=== PATIENT | female | born 1955 | race Caucasian/White ===

== ENCOUNTER → 2018-10-05 11:43 | Outpatient (CLI) | payer OTHER, MEDICAID, SELFPAY ==
--- NOTE | 2018-10-05 | DI.RAD.S_ITS ---
PROCEDURE: XR CERVICAL SPINE 2V OR 3V INDICATIONS: NECK PAIN TECHNIQUE: 3 view(s) of the cervical spine were acquired. COMPARISON: [facility], CR, XR C SPINE 2-3V, 07/27/2016, 4:07 PM. FINDINGS: Bones: Mild retrolisthesis of C5 on C6. No fractures or dislocations to the T1 level. The lateral masses of C1 appear intact on the odontoid view. There is severe degenerative disc disease at C5-C6 and C6-C7. Bilateral facet arthropathy, most pronounced at C3-C4 and C4-C5 on the left. There is moderate to severe atlantoaxial joint degeneration. No suspicious bony lesions. Soft tissues: No prevertebral soft tissue swelling. IMPRESSION: 1. Severe degenerative disc disease at C5-C6 and C6-C7. 2. Multilevel facet arthropathy in cervical spine, more pronounced on the left. 3. 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 Dictated by: Ehsan Armstrong M.D. on 10/05/2018 at 16:42 Approved by: Ehsan Armstrong M.D. on 10/05/2018 at 16:45
== END ==
PROVIDERS: PCP Family Medicine; Visit Provider Family Medicine
DX: M50.322 Other cervical disc degeneration at C5-C6 level (principal); M47.812 Spondylosis without myelopathy or radiculopathy, cervical region
CPT/HCPCS: 72040

== ENCOUNTER → 2018-11-06 09:44 | Outpatient (CLI) | payer OTHER, MEDICAID, SELFPAY ==
--- NOTE | 2018-11-06 09:51 | DI.CT.S_ITS ---
PROCEDURE: CT CERVICAL SPINE WO CON INDICATIONS: cervicalgia TECHNIQUE: Noncontrast 3 mm thick sections acquired from the skull base to the T4 level. Sagittal and coronal reformats were then constructed. For radiation dose reduction, the following was used: automated exposure control, adjustment of mA and/or kV according to patient size. COMPARISON: [facility], CR, XR CERVICAL SPINE 2V OR 3V, 10/05/2018, 11:56. FINDINGS: Image quality: Excellent. Bones: No fractures can be seen. No dislocations Visualized superior ribs are intact. Relatively prominent degenerative changes are seen. There is prominent focal facet hypertrophy seen on the right at the C1-C2 level, with associated prominent bony irregularity. Moderate facet hypertrophy can be seen elsewhere, which is more prominent on the left side than on the right. There is moderate to severe disc space narrowing at C5-C6 and C6-C7. Prominent endplate irregularity can be seen, with endplate osteophyte formation, including prominent posteriorly directed osteophytes. There is moderate to severe central canal narrowing at C5-C6 and at least moderate central canal narrowing at C6-C7. There is reversal of the normal cervical lordosis, with the apex at the C4-C5 level. Soft tissues: Prevertebral soft tissues are normal in thickness. No paravertebral hematomas. No apical pneumothoraces. IMPRESSION: Prominent cervical spine degenerative changes. Dictated by: Fernando Heck M.D. on 11/06/2018 at 9:20 Approved by: Fernando Heck M.D. on 11/06/2018 at 9:26
== END ==
PROVIDERS: PCP Family Medicine; Visit Provider Family Medicine
DX: M54.2 Cervicalgia (principal); M47.812 Spondylosis without myelopathy or radiculopathy, cervical region
CPT/HCPCS: 72125

== ENCOUNTER → 2019-01-08 16:47 | Outpatient (CLI) | payer OTHER, MEDICAID, SELFPAY ==
--- NOTE | 2019-01-08 | DI.MRI.S_ITS ---
PROCEDURE: MR CERVICAL SPINE WO CON INDICATIONS: Neck pain and stiffness. Left shoulder pain. Left arm weakness TECHNIQUE: Noncontrast sagittal T1 spin echo and T2 fast spin echo, sagittal STIR, foraminal oblique sagittal T2 fast spin echo, and axial gradient echo or T2 fast spin echo through the cervical spine. COMPARISON: [facility], CT, CT CERVICAL SPINE WO CON, 11/06/2018, 9:50. [facility], CR, XR CERVICAL SPINE 2V OR 3V, 10/05/2018, 11:56. FINDINGS: Image quality: Excellent. Alignment and Curvature: There is loss of normal cervical lordosis. There is mild grade 1 retrolisthesis of C2 on C3, C5 on C6, and C6 on C7. Bone Marrow: Marrow demonstrates normal overall signal. Mild reactive signal within the endplates adjacent to the C2-C3, C3-C4, C4-C5, C5-C6, and C6-C7 intervertebral discs. Spinal Cord: Visualized spinal cord has normal size and signal. No cerebellar tonsillar herniation. Paraspinous Soft Tissues: No paravertebral masses. Prevertebral soft tissues are normal in thickness. There is a 12 mm diameter high T2 intensity focus involving the right aspect of the tongue base. There is asymmetry of the period form sinuses, with partial effacement of the right puriform sinus. C2-C3: Moderate disc desiccation and moderate diffuse disc bulge with superimposed broad-based central protrusion. Mild bilateral facet hypertrophy. Mild bilateral uncovertebral hypertrophy. Moderate to severe canal stenosis. Mild bilateral foraminal stenosis. Mild cord flattening. C3-C4: Mild disc height loss and desiccation. Mild diffuse disc bulge with small superimposed central protrusion. Moderate left and mild right facet and uncovertebral hypertrophy. Moderate to severe canal stenosis. Mild right cord flattening. Moderate left and mild right foraminal stenosis. C4-C5: Moderate disc height loss and desiccation. Moderate diffuse disc bulge. Moderate left greater than right facet and uncovertebral hypertrophy. Severe canal stenosis. Mild cord flattening. Moderate left and mild right foraminal stenosis. C5-C6: Moderate disc height loss and desiccation. Moderate diffuse disc bulge/osteophyte with superimposed right paracentral broad-based protrusion. Moderate facet and uncovertebral hypertrophy bilaterally. Severe canal stenosis. Moderate cord flattening. Severe bilateral foraminal stenosis. Bilateral C6 nerve root flattening. C6-C7: Moderate disc height loss and desiccation. Moderate diffuse disc bulge. Moderate facet and uncovertebral hypertrophy bilaterally. Severe canal stenosis. Mild cord flattening. Moderate right and mild left foraminal stenosis. C7-T1: Moderate disc desiccation. Mild disc height loss. Mild facet and uncovertebral hypertrophy bilaterally. No significant canal stenosis. Mild bilateral foraminal stenosis. IMPRESSION: 1. Possible right tongue base mass. ENT consultation recommended. 2. Multilevel degenerative disc and facet disease, as well as uncovertebral and facet hypertrophy. 3. Multilevel canal stenoses, with cord flattening at C2-C3, C3-C4, C4-C5, C5-C6, and C6-C7. 4. Multilevel foraminal stenoses, worst at C5-C6, where there is bilateral intraforaminal nerve root flattening. Recommend correlation with clinical symptoms to ascertain relevance of these findings. Dictated by: Dharmesh Meyers M.D. on 01/09/2019 at 8:07 Approved by: Dharmesh Meyers M.D. on 01/09/2019 at 8:20
== END ==
PROVIDERS: PCP Family Medicine; Visit Provider Family Medicine
DX: M54.5 Low back pain (principal); M43.6 Torticollis; M25.512 Pain in left shoulder; M62.81 Muscle weakness (generalized); M50.31 Other cervical disc degeneration, high cervical region; M48.02 Spinal stenosis, cervical region
CPT/HCPCS: 72141

== ENCOUNTER → 2019-02-08 11:56 | Outpatient (CLI) | payer OTHER, MEDICAID, SELFPAY ==
--- NOTE | 2019-02-08 | DI.CT.S_ITS ---
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 Additional oblique axial 3.0 mm sections acquired through the pharynx. 3 mm thick coronal and sagittal reformats were generated. For radiation dose reduction, the following was used: automated exposure control. COMPARISON: [facility], MR, MR CERVICAL SPINE WO CON, 01/08/2019, 16:59. [facility], CT, CT CERVICAL SPINE WO CON, 11/06/2018, 9:50. FINDINGS: Image quality: Relatively prominent cervical spine degenerative changes are seen. Lymph nodes: No enlarged lymph nodes seen throughout the neck. Vessels: Visualized vasculature appears patent. Neck spaces: There is abnormal asymmetric fullness with abnormal hyperenhancement seen involving the right tongue base, which measures 1 x 1.1 cm in greatest axial dimension. The oropharynx, nasopharynx, and pharynx demonstrate no mucosal lesions. The vocal cords, false vocal cords, pyriform sinuses, epiglottis, and the vallecula appear normal. Extramucosal spaces appear unremarkable. Glands: The parotid and submandibular glands appear normal. Thyroid gland demonstrates no significant CT abnormality. Miscellaneous: Visualized brain and orbits appear normal. Within the left upper lobe, there is an ovoid pulmonary nodule seen, as on series 3 image 47 and measures 5 mm. Superficial soft tissues appear normal. Bones: No suspicious bony lesions. Visualized sinuses and mastoids appear unremarkable. Relatively prominent cervical spine degenerative changes are seen, which are most prominent inferiorly. IMPRESSION: 1.1 cm right tongue base mass. Please correlate with direct visual inspection. There is a 5 mm left upper lobe pulmonary nodule seen. In this patient with a primary mass, please consider a dedicated chest CT to evaluate for additional pulmonary nodules. Cervical spine degenerative changes are noted. Dictated by: Fernando Heck M.D. on 02/08/2019 at 13:21 Approved by: Fernando Heck M.D. on 02/08/2019 at 13:27
[2019-02-08 12:30] LABS: BUN Creatinine Ratio 11.3 (6-22); Blood Urea Nitrogen 9 mg/dL (7-17); Estimated Glomerular Filt Rate > 60.0 mL/min (>60)
== END ==
PROVIDERS: PCP Family Medicine; Visit Provider Otolaryngology
DX: D49.0 Neoplasm of unspecified behavior of digestive system (principal); R91.1 Solitary pulmonary nodule; M47.812 Spondylosis without myelopathy or radiculopathy, cervical region
CPT/HCPCS: 36415; 70491; 82565; 84520; Q9967

== ENCOUNTER 2019-04-22 14:02 | Day surgery (SDC) | payer OTHER, MEDICAID, SELFPAY ==
[2019-04-22] VITALS (7 sets, daily range): BP systolic 116–186; BP diastolic 63–89; PULSE 67–77; RESP 12–18; TEMP 35.6–36.8; O2SAT 93–99; BMI 21.7
--- NOTE | 2019-04-22 | PATH_ITS ---
[facility] Accession Number: [id number] . 01 Material submitted: . tongue, base - RIGHT BASE OF TONGUE . 01 Diagnosis: RIGHT BASE OF TONGUE, BIOPSY: . 1. Squamous mucosa with moderately-dense chronic inflammation and no evidence of involvement by lymphoma (see Comments) . 2. No evidence of an epithelial or stromal neoplasm . 3. No evidence of an EBV+ process by MASOUD-1 in-situ hybridization . 4. Separate portion of mucinous minor salivary gland tissue with no diagnostic alteration . BOO 04/30/2019 1204 Local . 01 Comment: Per report, a CT of the neck soft tissue with contrast performed on 02/08/2019 described the presence of an abnormal asymmetric fullness with abnormal hyperenhancement involving the right tongue base, measuring 1 x 1.1 cm in greatest axial dimension. However, per Dr. Smooth Frost's 04/22/2019 operative note, he did not palpate an obvious mass in the right tongue base at the time of biopsy. Preliminary pathology findings were discussed with Dr. Frost on 04/30/2019 at 9:15 AM PST. . . 01 Electronically signed: . Brielle Mclaughlin MD, Pathologist NPI- [id number] . 01 Gross description: . Received in formalin, labeled right base of tongue biopsy, are multiple fragments of sandra-muir tissue (1.0 x 0.7 x 0.2 cm in aggregate). Entirely submitted in cassette A1. ([id number]) /MRV 04/23/2019 1526 Local . 01 Microscopic: . H/E-stained sections reveal well-sampled portions of squamous mucosa with moderately-dense involvement by a chronic inflammatory infiltrate comprised predominantly of small to intermediate-sized lymphocytes and occasional admixed plasmacytic cells and probable tissue histiocytes. There is mild to moderate exocytosis of predominantly small lymphocytes into the overlying epithelium, but the lymphocytes lack overt cytologic atypia. No atypical Hodgkin-like cell population is identified, and no confluent sheets of large atypical lymphocytes are seen. There is not an obvious neutrophilic or eosinophilic inflammatory infiltrate. There is no evidence of surface ulceration, or foci of incipient or geographic necrosis. A lobulated portion of mucinous minor salivary gland tissue is also present that lacks significant inflammation. There is no evidence of squamous dysplasia in the surface epithelium, and no evidence of an invasive epithelial or stromal neoplasm. Three deeper tissue H/E-stained levels were evaluated. . Select immunohistochemical studies* and a chromogenic MASOUD-1 in-situ hybridization study* were performed on the remaining deeper levels of the tissue for further evaluation of the lymphoid cells, with accompanying positive and negative controls. The lymphocytes are a mixture of Pax5+ B-cells and CD3+/CD5+ T-cells, with mild T-cell predominance. There is no convincing aberrant coexpression of CD5, CD43, bcl-6, or cyclin D1 on the B-cells. A small subset of naive B-cells with coexpression of IgD and bcl-2 are present; and both the T-cells and plasma cells express bcl-2. The Va-21-mpiupkd proliferative rate among the lymphoid cells is approximately 3-5%, with rare foci representing probable disrupted germinal centers that have expression of bcl-6 and a higher Rj-38-aezkcxb proliferative rate. The plasma cells are polytypic by kappa and lambda light chain immunostains. No EBV+ cells are identified by MASOUD-1 in-situ hybridization, with adequate U6 internal RNA controls present in the best-preserved areas of the tissue. . * Technical note: These tests and their performance characteristics have been determined by [facility]. They have not been cleared or approved by the U.S. Food and Drug Administration. The FDA has determined that such clearance or approval is not necessary. These tests are used for clinical purposes, and should not be regarded as investigational or for research. . . 01 Pathologist provided ICD-10: K14.6, K14.8 . 01 CPT . 472579, E96927, K82494, Q75081 Performed at: 01 [facility] [address] [place] [address] [address], [place], [place] [id number] MD Kendrick Gil MD Phone: [phone]
[2019-04-22] MEDS: LACTATED RINGERS 1,000 ML 42 ML IV ×2 (14:31→16:18)
--- NOTE | 2019-04-22 15:38 | PM.PREOP ---
Pre-operative Note Interval Note History & Physical reviewed/Exam performed by Physician: Yes Changes to H&P: No
[2019-04-22] MEDS: OXYMETAZOLINE NASAL SPRAY 30 ML 2 SPRAYS NASAL (16:15)
--- NOTE | 2019-04-22 16:29 | PM.OP.1 ---
Operative Date/Time/Diagnoses Date of procedure: 04/22/19 Time of procedure: 16:20 Pre-op diagnosis: RIGHT base of tongue mass Post-op diagnosis: same Procedure & Clinicians Procedure: Direct laryngoscopy with biopsy right base of tongue Same procedure as scheduled: Yes Indications: 64-year-old female with the above diagnosis, along with right tongue pain, presents for the above procedure. Following discussion of the material risks benefits complications and alternatives, she elected to proceed. Surgeon: Smooth Frost Click Yes if Unassisted: Yes Anesthesia Type: General Operative Notes Findings: Difficult exposure with small mouth, some trauma with intubation. Right base of tongue soft to palpation, superficial and deep biopsies taken. Closure Type: not applicable Specimen(s): other (Right base of tongue) Estimated Blood Loss (mL): 5 Blood products transfused: none Procedure in detail: Following identification and confirmation of consent, she was brought to the operating room suite and general endotracheal anesthesia was administered although exposure was difficult as the larynx was anterior and there was some trauma from initial attempted intubation and eventually she was intubated with the glide scope. An upper tooth guard was placed, and I was able to palpate the right base of tongue without obvious abnormality. Initially I visualized the base of tongue with the glide scope but was unable to obtain biopsies due to the curved blade. The rigid laryngoscope was then placed intraorally along the right side of the tongue until the vallecula and right base of tongue was visualized. Approximately 9 separate cup forcep biopsy bites were taken superficially and deeper with Afrin on a pledget briefly for hemostasis which was excellent. The laryngoscope was removed and there were no known complications. She was extubated in the operating room and taken to recovery room in stable condition. Complications: none Post-operative Condition: stable Disposition: same day surgery Plan for aftercare: [place] home
[2019-04-22] MEDS: fentaNYL 100 MCG/2 ML INJ 50 MCG IV ×2 (16:40→16:45)
[2019-04-22] MEDS: OXYCODONE/ACETAMINOPHEN 5/325 TABLET 1 TAB PO (17:07)
--- NOTE | 2019-04-22 17:54 | SUR.PHASEII ---
Pt. did not get a prescription for pain Rx, however pt. stated that I have percocet at home, but it might make me nauseous. Attempted to call Dr. Frost for anti-nausea but not solution manager tonight, Dr. Carrillo is solution manager, pending call back from Dr. Carrillo before pt. d/c'd home.
--- NOTE | 2019-04-22 18:06 | SUR.PHASEII ---
Just spoke with on-call Florence Davis 4mg sub-lingual will be phoned into the [facility] for pt. and family to p\u this evening.
== END 2019-04-22 18:10 | disposition home or self-care (01) ==
PROVIDERS: PCP Family Medicine; Visit Provider Otolaryngology
PROC: 0CJS8ZZ Inspection of Larynx, Via Natural or Artificial Opening Endoscopic (ICD-10-PCS; CPT 31510; principal; 2019-04-22 15:30)
DX: K14.5 Plicated tongue (principal); K14.8 Other diseases of tongue
CPT/HCPCS: 31510; J0330; J1100; J2405; J2704; J3010

== ENCOUNTER 2019-04-26 11:58 | Emergency (ER) | payer OTHER, MEDICAID, SELFPAY ==
[2019-04-26 12:07] VITALS: BP 146/86; PULSE 90; RESP 16; TEMP 36.4; O2SAT 97; BMI 20.3
[2019-04-26] MEDS: SODIUM CHLORIDE 0.9% 1,000 ML 1000 ML IV (12:30)
[2019-04-26] MEDS: KETOROLAC 60 MG/2 ML VIAL 30 MG IV (12:30)
[2019-04-26] MEDS: DEXAMETHASONE 10 MG/ML VIAL PO (12:30)
--- NOTE | 2019-04-26 12:44 | ED_ITS ---
HPI - General Adult General Chief complaint: Dental/Oral Stated complaint: says doctor wants her seen in ER for pain Time Seen by Provider: 04/26/19 12:01 Source: patient Mode of arrival: Ambulatory Limitations: no limitations History of Present Illness HPI narrative: Patient is a 64-year-old female was sent over from the ENT office for concerns of dehydration. I did receive a call from Dr. Frost with the ENT prior to the patient's arrival. He recently did a tongue biopsy on what he believes is a benign lesion. Since that time patient has had some pain issues and problems with swallowing. There was concern about dehydration. He was asking us to provide IV fluids and a dose of Decadron and Toradol. Related Data Home Medications Medication Instructions Recorded Confirmed alprazolam 0.5 mg PO 3-4XD 04/22/19 04/26/19 atorvastatin [Lipitor] 10 mg PO DAILY 04/22/19 04/26/19 gabapentin 100 mg PO BID 04/22/19 04/26/19 meloxicam 7.5 mg PO DAILY 04/22/19 04/26/19 tramadol 50 mg PO BID PRN 04/22/19 04/22/19 [id number] [Creon] PO 04/26/19 Allergies Allergy/AdvReac Type Severity Reaction Status Date / Time No Known Drug Allergies Allergy Verified 04/22/19 14:34 Review of Systems Constitutional Constitutional: Denies fever(s) ENT Comments: Sore throat and tongue pain Cardiovascular Cardiovascular: Denies chest pain and Denies dyspnea Respiratory Respiratory: Denies dyspnea Gastrointestinal Gastrointestinal: Denies abdominal pain Integumentary/Breasts Skin/Breast: Denies rash Hematologic/Lymphatic Hematologic/Lymphatic: Denies easy bleeding and Denies easy bruising [facility] Medical History Patient denies medical problems (Acute) Social History household members: other Smoking Status: Never smoker Social History household members: other Smoking Status: Never smoker Exam Initial Vital Signs Initial Vital Signs: Vital Signs Temperature 97.5 F L 04/26/19 12:07 Pulse Rate 90 04/26/19 12:07 Respiratory Rate 16 04/26/19 12:07 Blood Pressure 146/86 H 04/26/19 12:07 Pulse Oximetry 97 04/26/19 12:07 Const General: cooperative, comfortable and well developed Orientation: alert, awake and oriented x3 HENMT Mouth: tongue abnormal (Unable to visualize the biopsy site) and other (Oral mucosa in) Resp Effort & Inspection: normal respiratory effort Skin Lesions: no lesions Rashes: no rashes Neuro General: alert and awake Cognition: normal cognition Speech: speech normal Extrem General: normal to inspection and capillary refill normal Course Orders Ordered: Discontinued Medications Dexamethasone (Decadron) 10 mg PO NOW ONE Stop: 04/26/19 12:02 Last Admin: 04/26/19 12:30 Dose: 10 mg Documented by: RADHA Sodium Chloride (Normal Saline 0.9%) 1,000 mls @ 1,000 mls/hr IV BOLUS ONE Stop: 04/26/19 13:00 Last Infusion: 04/26/19 14:03 Dose: 0 mls/hr Documented by: Admin: 04/26/19 12:30 Dose: 1,000 mls/hr Documented by: RADHA Ketorolac Tromethamine (Toradol) 30 mg IV NOW ONE Stop: 04/26/19 12:02 Last Admin: 04/26/19 12:30 Dose: 30 mg Documented by: RADHA Vital Signs Vital signs: Vital Signs - 8 hr 04/26/19 12:07 Temperature 97.5 F L Pulse Rate 90 Respiratory Rate 16 Blood Pressure 146/86 H Pulse Oximetry 97 Medical Decision Making MDM Narrative Medical decision making narrative: Dr. Frost stated that he did evaluate the biopsy site and it looked well. Patient received fluids and Toradol and Decadron and she did report improvement in how she was feeling. Will hold on further workup for now. Patient was instructed to contact the ENT office for follow-up. She was also instructed to follow any instructions given to her with ENT providers. She expressed understanding and agreement with plan. Discharge Plan Departure Patient Disposition: Home Clinical Impression: Dehydration Instructions: Dehydration Activity Restrictions/Additional Instructions: Recommend that you follow all of your postoperative instructions given to you by the ENT providers. Contact the ENT doctors to discuss follow-up. Continue all of your medications as directed. Return to the emergency department for any new or worsening symptoms Prescriptions: No Action atorvastatin [Lipitor] 10 mg Tablet 10 mg PO DAILY RF: 0 meloxicam 7.5 mg Tablet 7.5 mg PO DAILY RF: 0 alprazolam 0.5 mg Tablet 0.5 mg PO 3-4XD RF: 0 gabapentin 100 mg Capsule 100 mg PO BID RF: 0 tramadol 50 mg Tablet 50 mg PO BID PRN (Reason: Pain (Scale Score 1-3)) RF: 0 Creon 3,000-9,500- 15,000 unit capsule,delayed release(DR/EC) PO RF: 0 Referrals: Musa Lynch MD [Primary Care Provider] -
[2019-04-26 14:29] VITALS: BP 128/76; PULSE 68; RESP 16; O2SAT 99
== END 2019-04-26 14:36 | disposition home or self-care (01) ==
PROVIDERS: Emergency Provider Emergency Medicine; PCP Family Medicine
DX: E86.0 Dehydration (principal)
CPT/HCPCS: 36415; 96361; 96374; 99283; 99284; J1100; J1885